=== PATIENT | male | born 1950 | race Two or more races ===

== ENCOUNTER 2025-06-08 09:42 | Outpatient (OUT) | payer MEDICARE, SELFPAY ==
--- NOTE | 2025-06-08 09:54 | XR_ITS ---
[place] [id number] Patient Name: LUIS MÉNDEZ MRN: [id number] date: 1950 Sex: M Assigned Patient Location: RAD Current Patient Location: [facility] Accession/Order Number: [id number] Exam Date: 06/08/2025 10:05 Report Date: 06/08/2025 13:10 At the request of: FRANCINE HOUSER DPPiyush Procedure: XR ankle LT min 3V LEFT ANKLE - 3 views CLINICAL DATA: Chronic left ankle swelling. No injury. COMPARISON: None AP, lateral and oblique views were obtained. There is no acute fracture or dislocation. There is spurring at the medial malleolus and tibial plafond. Posterior and plantar calcaneus spurs are present. There is mild diffuse soft tissue swelling. XR/XR ankle LT min 3V IMPRESSION: MILD DEGENERATIVE CHANGE. NO ACUTE BONY FINDINGS. Impression dictated by: Brooklyn Clemons M.D. 06/08/2025 1:10 PM Dictation Location: [place] [address] Electronically authenticated by: [id number] Date: 06/08/2025 13:10
== END 2025-06-08 09:43 | disposition home or self-care (01) ==
LOC: RAD 09:48
PROVIDERS: Visit Provider Podiatrist Foot & Ankle Surgery
DX: M25.572 Pain in left ankle and joints of left foot (principal)
CPT/HCPCS: 73610